=== PATIENT | female | born 1965 | race Caucasian/White ===

== ENCOUNTER 2018-08-03 09:40 | Emergency (ER) | payer OTHER ==
[~2018-08-03] VITALS: Ht 157.5 cm; Wt 74.8 kg
[2018-08-03] MEDS ORDERED: [UNRECOGNIZED DRUG - OTHER] (09:48)
[2018-08-03] MEDS ORDERED: SYNTHROID112 MCG (09:48)
[2018-08-03] MEDS ORDERED: FOLIC ACID0.4 MG (09:49)
[2018-08-03] MEDS ORDERED: KEPPRA100 MG/1 M (09:49)
== END 2018-08-03 11:08 | disposition home or self-care (01) ==
LOC: ER 09:40
DX: S01.02XD Laceration with foreign body of scalp, subsequent encounter (principal); M62.838 Other muscle spasm